=== PATIENT | female | born 1955 | race Caucasian/White ===

== ENCOUNTER → 2017-02-02 | Outpatient (CLI) | payer BC ==
--- NOTE | 2017-02-02 11:44 | US ---
EXAMINATION TYPE: US abdomen limited DATE OF EXAM: 02/02/2017 COMPARISON: NONE CLINICAL HISTORY: R10.11 Right upper quadrant pain. On and off RUQ pain for years, recent episode mor e painful, patient states she had 3 HIDA's scans, first 2 were abnormal but 3rd was done here and she said it was normal EXAM MEASUREMENTS: Liver Length: 19.0 cm Gallbladder Wall: 0.2 cm CBD: 0.6 cm Right Kidney: 10.9 x 4.5 x 5.1 cm large body habitus and bowel gas Pancreas: limited views due to bowel gas Liver: heterogeneous, difficult to penetrate and enlarged Gallbladder: wnl Evidence for sonographic Harris's sign: no CBD: wnl Right Kidney: wnl Visualized pancreas is slightly heterogeneous. Visualized liver is markedly heterogeneously hyperecho ic. Evaluation for focal masses is suboptimal due to the heterogeneity. Finding likely on basis of di ffuse fatty infiltration. IMPRESSION: Diffuse fatty infiltration of liver is felt present. No shadowing mobile gallstones or ul trasound evidence for acute cholecystitis.
== END | disposition home or self-care (01) ==
LOC: RADUSWWP 09:37
PROVIDERS: ATTEND Family Medicine
DX: K76.0 Fatty (change of) liver, not elsewhere classified (principal)
CPT/HCPCS: 76705

== ENCOUNTER → 2020-04-09 | Outpatient (CLI) | payer BC | END | disposition home or self-care (01) | LOC: RADXRYALE 16:01 | PROVIDERS: ATTEND Physician Assistant Medical | DX: Z53.9 Procedure and treatment not carried out, unspecified reason (principal) ==

== ENCOUNTER → 2020-11-06 | Outpatient (CLI) | payer MEDICARE ==
--- NOTE | 2020-11-06 10:36 | MM ---
Reason for exam: clinical finding. History: Patient is postmenopausal, has history of endometrial cancer at age 52, and is nulliparous. Family history of breast cancer in sister at age 28. Physical Findings: Nurse did not find any significant physical abnormalities on exam. MG 3D Diag Mammo W/Cad CALI Bilateral CC and MLO view(s) were taken. LM, spot compression MLO, and CC with magnification view(s) were taken of the left breast. No prior studies available for comparison. Oval focal asymmetry left upper inner quadrant. Additional low density areas of nodularity are also present on the left. These results were verbally communicated with the patient and result sheet given to the patient on 11/06/20. ASSESSMENT: Incomplete: need additional imaging evaluation, BI-RAD 0 RECOMMENDATION: Ultrasound of the left breast. (medial half)
--- NOTE | 2020-11-06 10:38 | USB ---
Reason for exam: additional evaluation requested from abnormal screening. History: Patient is postmenopausal, has history of endometrial cancer at age 52, and is nulliparous. Family history of breast cancer in sister at age 28. US Breast Limited LT Left limited breast ultrasound including focal area of concern, retroareolar and axilla demonstrates a 4 x 3 x 4mm lesion too small to characterize at 7 o'clock, 6 month follow up recommended and a 5 x 5 x 6mm discrete, hypoechoic lesion at 11 o'clock, similar, smaller 3mm area adjacent. Suspect some shadowing breast tissue. Scanned 6-12 o'clock. 6 month follow up recommended. These results were verbally communicated with the patient and result sheet given to the patient on 11/06/20. ASSESSMENT: Probably benign, BI-RAD 3 RECOMMENDATION: Follow-up diagnostic mammogram and ultrasound of the left breast in 6 months.
== END | disposition home or self-care (01) ==
LOC: RADMAMWWP 07:02
PROVIDERS: ATTEND Family Medicine
DX: N64.89 Other specified disorders of breast (principal); Z78.0 Asymptomatic menopausal state; Z80.3 Family history of malignant neoplasm of breast
CPT/HCPCS: 77066; 76642; G0279; 77062

== ENCOUNTER → 2020-11-26 | Outpatient (CLI) | payer MEDICARE ==
--- NOTE | 2020-11-26 12:24 | XR ---
EXAMINATION TYPE: XR foot complete LT DATE OF EXAM: 11/26/2020 COMPARISON: NONE HISTORY: Pain TECHNIQUE: Three views are submitted. FINDINGS: The osseous structures are intact. There is no acute fracture or dislocation. Diffuse osteopenia w ith arthropathy of the first MTP. Arthropathy of the DIP joints of the second through fourth digits. Calcaneal spur noted.. IMPRESSION: 1. No acute fracture or dislocation. If symptoms persist, follow-up exam in 7 to 10 days could be ob tained. 2. diffuse osteopenia and arthropathy. 3. Plantar calcaneal spur.
== END | disposition home or self-care (01) ==
LOC: RADXRYALE 09:23
PROVIDERS: ATTEND Physician Assistant Medical
DX: M77.32 Calcaneal spur, left foot (principal); M19.072 Primary osteoarthritis, left ankle and foot

== ENCOUNTER → 2021-05-12 | Outpatient (CLI) | payer MEDICARE ==
--- NOTE | 2021-05-13 10:05 | MM ---
Reason for exam: clinical finding. Last mammogram was performed 6 months ago. History: Patient is postmenopausal, has history of endometrial cancer at age 52, and is nulliparous. Family history of breast cancer in sister at age 28. Indicated problem(s): lump or thickening in the right breast. Physical Findings: Nurse did not find any significant physical abnormalities on exam. MG 3D Diag Mammo W/Cad CALI Bilateral CC, MLO, and LM view(s) were taken. Prior study comparison: November 06, 2020, bilateral MG 3d diag mammo w/cad CALI. There are scattered fibroglandular densities. Stable medial asymmetric density left breast for 6 months. 8mm circumscribed mass 9 o'clock right breast is new, suspected hematoma. These results were verbally communicated with the patient and result sheet given to the patient on 05/12/21. ASSESSMENT: Incomplete: need additional imaging evaluation, BI-RAD 0 RECOMMENDATION: Ultrasound of both breasts.
--- NOTE | 2021-05-13 10:08 | USB ---
Reason for exam: additional evaluation requested from abnormal screening. History: Patient is postmenopausal, has history of endometrial cancer at age 52, and is nulliparous. Family history of breast cancer in sister at age 28. US Breast Workup Limited CALI Right limited breast ultrasound including focal area of concern, retroareolar and axilla demonstrates a 1.1 x 0.8 x 0.9cm mixed, echogenic lesion with cystic component at 8 o'clock, 3 month follow up recommended. Left limited breast ultrasound including focal area of concern, retroareolar and axilla demonstrates a 0.5 x 0.4 x 0.4cm lesion too small to characterize at 7 o'clock versus 4 x 4 x 3mm previously and a 0.6 x 0.6 x 0.8cm mixed lesion at 10 o'clock, continue to follow up. These results were verbally communicated with the patient and result sheet given to the patient on 05/12/21. ASSESSMENT: Probably benign, BI-RAD 3 RECOMMENDATION: Follow-up diagnostic mammogram of the right breast in 3 months. Follow-up diagnostic mammogram and ultrasound of the left breast in 6 months.
== END | disposition home or self-care (01) ==
LOC: RADMAMWWP 13:38
PROVIDERS: ATTEND Family Medicine
DX: R92.8 Other abnormal and inconclusive findings on diagnostic imaging of breast (principal); N63.10 Unspecified lump in the right breast, unspecified quadrant; Z78.0 Asymptomatic menopausal state; Z80.3 Family history of malignant neoplasm of breast
CPT/HCPCS: 77066; 76642; G0279; 77062

== ENCOUNTER → 2022-01-11 | Outpatient (CLI) | payer MEDICARE ==
--- NOTE | 2022-01-11 07:35 | MM ---
Reason for Exam: Follow-up at short interval from prior study. Last screening mammogram was performed 8 month(s) ago. Patient History: Menarche at age 10. Patient has no children. Left ovary removed at age 52. Right ovary removed at age 52. Hysterectomy at age 52. Postmenopausal. Endometrial cancer, age 52. Sister had breast cancer, age 28. Risk Values: Jenise 5 year model risk: 3.6%. NCI Lifetime model risk: 12.1%. Prior Study Comparison: 11/06/2020 Bilateral Diagnostic Mammogram, [facility]. 05/12/2021 Bilateral Diagnostic Mammogram, [facility]. Tissue Density: The breast tissue is almost entirely fat. Findings: Analyzed By CAD. Areas of concern on prior in the left breast is stable, specifically the left anterior medial on CC and retroareolar on MLO view density. The area within the right breast seen laterally and superiorly is not definitively visualized on today's exam. Overall Assessment: Benign, BI-RAD 2 Management: Screening Mammogram of both breasts in 1 year. Please see ultrasound report for findings on sonography. A clinical breast exam by your physician is recommended on an annual basis and results should be correlated with mammographic findings. This exam should not preclude additional follow-up of suspicious palpable abnormalities. Results were given to the patient verbally at the time of exam. Electronically signed and approved by: Black Gutierrez DO
--- NOTE | 2022-01-11 08:31 | USB ---
Reason for Exam: Follow-up at short interval from prior study. Patient History: Menarche at age 10. Patient has no children. Left ovary removed at age 52. Right ovary removed at age 52. Hysterectomy at age 52. Postmenopausal. Endometrial cancer, age 52. Sister had breast cancer, age 28. Risk Values: Jenise 5 year model risk: 3.6%. NCI Lifetime model risk: 12.1%. Technique: Method: Targeted. Prior Study Comparison: 11/06/2020 Bilateral Diagnostic Mammogram, [facility]. 05/12/2021 Bilateral Diagnostic Mammogram, [facility]. 05/12/2021 Bilateral Diagnostic Ultrasound, [facility]. Findings: The axilla of the left breast and the retroareolar of the left breast were scanned. Area of concern at 7:00 to 10:00 was scanned with grayscale imaging along with axillary tail. * Similar Left breast 10:00 5 cm from nipple demonstrates slightly heterogenous lesion measuring similarly at 7 x 6 mm * Similar Left breast 7:00 3 cm from nipple demonstrates heterogenous hypoechoic area measuring similarly at 4 x 3 mm. Overall Assessment: Probably benign, BI-RAD 3 Management: Diagnostic Breast Ultrasound of the left breast in 6 months. A clinical breast exam by your physician is recommended on an annual basis and results should be correlated with mammographic findings. This exam should not preclude additional follow-up of suspicious palpable abnormalities. ??Results were given to the patient verbally at the time of exam. Electronically signed and approved by: Black Gutierrez, DO
== END | disposition home or self-care (01) ==
LOC: RADMAMWWP 06:57
PROVIDERS: ATTEND Family Medicine
DX: R92.8 Other abnormal and inconclusive findings on diagnostic imaging of breast (principal); Z78.0 Asymptomatic menopausal state; Z80.3 Family history of malignant neoplasm of breast
CPT/HCPCS: 77066; 76642; G0279; 77062

== ENCOUNTER → 2023-09-28 | Outpatient (CLI) | payer MEDICARE ==
--- NOTE | 2023-09-28 10:20 | USB ---
Reason for Exam: Additional evaluation requested from prior study. Patient History: Menarche at age 10. Patient has no children. Left ovary removed at age 52. Right ovary removed at age 52. Hysterectomy at age 52. Postmenopausal. Endometrial cancer, age 52. Sister had breast cancer, age 28. Risk Values: Jenise 5 year model risk: 3.7%. NCI Lifetime model risk: 11.1%. Technique: Method: Targeted. Doppler: Color. Patient Position: Supine. Prior Study Comparison: 11/06/2020 Bilateral Diagnostic Mammogram, [facility]. 05/12/2021 Bilateral Diagnostic Mammogram, [facility]. 01/11/2022 Bilateral MG 3D diag mammo w/cad CALI, [facility]. 01/11/2022 Left US breast limited , [facility]. Findings: The medial section of the breast of the left breast, the axilla of the left breast and the retroareolar of the left breast were scanned. At the 10:00 position 5 cm from nipple is a hypoechoic area with posterior shadowing. This 0.7 x 0.7 x 0.7 cm lesion is more distinct with greater loss of signal throughout the lesion. Biopsy is recommended. Within the left axilla there is a prominent 2.5 cm lymph node was thickened cortex measuring 0.5 cm. Overall Assessment: Suspicious, BI-RAD 4 Management: Surgical Consultation of the left breast. Ultrasound Core Biopsy of the left breast. A clinical breast exam by your physician is recommended on an annual basis and results should be correlated with mammographic findings. This exam should not preclude additional follow-up of suspicious palpable abnormalities. Results were given to the patient verbally at the time of exam. Electronically signed and approved by: Ovi Roth D.O. Radiologis
--- NOTE | 2023-09-29 07:24 | MM ---
Reason for Exam: Follow-up at short interval from prior study. Last mammogram was performed 1 year(s) and 9 month(s) ago. Patient History: Menarche at age 10. Patient has no children. Left ovary removed at age 52. Right ovary removed at age 52. Hysterectomy at age 52. Postmenopausal. Endometrial cancer, age 52. Sister had breast cancer, age 28. Risk Values: Jenise 5 year model risk: 3.7%. NCI Lifetime model risk: 11.1%. Prior Study Comparison: 11/06/2020 Bilateral Diagnostic Mammogram, [facility]. 11/06/2020 Left Diagnostic Ultrasound, [facility]. 05/12/2021 Bilateral Diagnostic Mammogram, [facility]. 05/12/2021 Bilateral Diagnostic Ultrasound, [facility]. 01/11/2022 Bilateral MG 3D diag mammo w/cad CALI, [facility]. 01/11/2022 Left US breast limited LT, [facility]. Tissue Density: There are scattered areas of fibroglandular density. Findings: Analyzed By CAD. The pattern is symmetrical. There is a focal asymmetry within the anterior lower aspect left breast. Additional evaluation with ultrasound is recommended. Right breast:No suspicious groups of microcalcifications, spiculated or lobular masses, architectural distortion or other secondary signs of malignancy are mammographically apparent. Overall Assessment: Incomplete: need additional imaging evaluation, BI-RAD 0 Management: Diagnostic Breast Ultrasound of the left breast. A negative mammogram report should not preclude additional follow up of suspicious palpable abnormalities. Patient should continue monthly self breast exam. A clinical breast exam by your physician is recommended on an annual basis and results should be correlated with mammographic findings. Note on Jenise scores and lifetime risk: 1. A Jenise score greater than 3% is considered moderate risk. If this is the case, consider specialist referral to assess eligibility for a risk reducing agent. 2. If overall lifetime risk for the development of breast cancer is 20% or higher, the patient may qualify for future screening with alternating mammogram and breast MRI. Electronically signed and approved by: Ovi Roth D.O. Radiologis
== END | disposition home or self-care (01) ==
LOC: RADMAMWWP 08:45
PROVIDERS: ATTEND Family Medicine
DX: R92.8 Other abnormal and inconclusive findings on diagnostic imaging of breast (principal); N63.10 Unspecified lump in the right breast, unspecified quadrant; R92.323 Mammographic fibroglandular density, bilateral breasts; Z78.0 Asymptomatic menopausal state; Z80.3 Family history of malignant neoplasm of breast
CPT/HCPCS: 77066; 76642; G0279; 77062

== ENCOUNTER → 2023-10-12 | Day surgery (SDC) | payer MEDICARE ==
--- NOTE | 2023-11-16 09:23 | MM ---
Reason for Exam: Post Procedure Mammogram. Last screening mammogram was performed less than 1 month ago. Patient History: Menarche at age 10. Patient has no children. Left ovary removed at age 52. Right ovary removed at age 52. Hysterectomy at age 52. Postmenopausal. Endometrial cancer, age 52. Sister had breast cancer, age 28. Risk Values: Jenise 5 year model risk: 3.7%. NCI Lifetime model risk: 11.1%. Prior Study Comparison: 05/12/2021 Bilateral Diagnostic Mammogram, [facility]. 01/11/2022 Bilateral MG 3D diag mammo w/cad CALI, [facility]. 09/28/2023 Bilateral MG 3D diag mammo w/cad CALI, [facility]. 09/28/2023 Left US breast LT, [facility]. Tissue Density: Left: There are scattered areas of fibroglandular density. Pathology Description: Location: 10 o'clock. Marker Left Behind. Needle Type: [employer] Cores: 4 Gauge: 12 The procedure of ultrasound guided core biopsy was explained to the patient. Benefits, alternatives, and risks were discussed. An informed consent was then obtained. The patient was placed in supine positioning for imaging and for the procedure. The overlying skin was prepped and draped in usual sterile fashion. Lidocaine buffered with bicarbonate was used as anesthetic into the skin and subcutaneous tissue up to area of concern in the left 10:00 breast. Under ultrasound guidance, a 12-gauge vacuum assisted biopsy gun device was used to obtain 4 core samples. Following this, a biopsy clip was left in lesion. The patient tolerated the procedure well without any immediate complication. The patient was kept in the radiology department for short stay after the procedure and then discharged home in stable condition. Postprocedure mammogram: The patient was transferred to mammography for physician ordered post procedure mammogram for clip placement verification. Impression: Successful, uncomplicated ultrasound guided core biopsy of area of concern in the left breast, full pathology results to follow. Pathology Results: Result: Benign, Fibrocystic change. Pathology and radiology were reviewed. Findings are concordant. LEFT BREAST, TEN O'CLOCK, ULTRASOUND GUIDED NEEDLE CORE BIOPSY: Benign breast with fibrocystic changes including fibroadenomatoid hyperplasia. Overall Assessment: Benign Assessment: MG diagnostic mammo LT wo CAD. - Left: Benign, BI-RAD 2. Management: Diagnostic Breast Ultrasound of the left breast in 6 months. Electronically signed and approved by: Rj Regalado M.D. Radiologis
== END ==
LOC: RADUSWWP 07:44
PROVIDERS: ATTEND Family Medicine
DX: N62 Hypertrophy of breast (principal); D24.2 Benign neoplasm of left breast; N60.12 Diffuse cystic mastopathy of left breast; R92.8 Other abnormal and inconclusive findings on diagnostic imaging of breast; Z78.0 Asymptomatic menopausal state; Z80.3 Family history of malignant neoplasm of breast; Z90.721 Acquired absence of ovaries, unilateral
CPT/HCPCS: 88305; 77065; 19083; A4648

== ENCOUNTER → 2024-03-30 | Outpatient (CLI) | payer MEDICARE ==
--- NOTE | 2024-03-30 15:04 | US ---
EXAMINATION TYPE: US st tissue head/neck DATE OF EXAM: 03/30/2024 COMPARISON: NONE CLINICAL INDICATION: Female, 69 years old with history of L04.0 LYMPHADENITIS FACE; round boner notes : Patient states she feels a palp and discomfort anterior mid neck from chin to lower. TECHNIQUE: Sonographic images taken at the area of concern FINDINGS: Chief Lock Operator notes: Multiple images taken of patients area of concern. Normal appearing lymph node seen with cortical th ickness =1.0 mm. Provided images show some ovoid asymmetry to the soft tissues overlying the left strap musculature at the area of concern. This area measures 1.2 x 1.7 x 0.6 cm. The etiology is unclear. Unclear if the finding indicated by the round boner above is a lymph node. The left submandibular gland has a normal appearance. IMPRESSION: Some asymmetry to the soft tissues overlying the left strap musculature at the area of concern. This area measures 1.7 x 1.2 x 0.6 cm. Etiology unclear. Possibly some nonspecific swelling. Recommend cli nical follow-up and follow-up ultrasound in 2-3 months to reassess. Rescan sooner if there is progres sive enlargement or consider contrast-enhanced CT soft tissue neck. [facility], Workstation: [place], 03/30/2024 3:02 PM
== END | disposition home or self-care (01) ==
LOC: RADUSWWP 13:25
PROVIDERS: ATTEND Family Medicine
DX: L04.0 Acute lymphadenitis of face, head and neck (principal)
CPT/HCPCS: 76536

== ENCOUNTER → 2024-06-05 | Outpatient (CLI) | payer MEDICARE ==
--- NOTE | 2024-06-05 08:02 | USB ---
Reason for Exam: Follow-up at short interval from prior study. Patient History: Menarche at age 10. Patient has no children. Left ovary removed at age 52. Right ovary removed at age 52. Hysterectomy at age 52. Postmenopausal. Endometrial cancer, age 52. 10/12/2023, Benign US biopsy breast VAD LT on the left side. Sister had breast cancer, age 28. Risk Values: Jenise 5 year model risk: 4.4%. NCI Lifetime model risk: 12.4%. Technique: Method: Targeted. Prior Study Comparison: 01/11/2022 Bilateral MG 3D diag mammo w/cad CALI, [facility]. 09/28/2023 Bilateral MG 3D diag mammo w/cad CALI, [facility]. 10/12/2023 Left MG diagnostic mammo LT wo CAD., [facility]. Findings: The upper inner quadrant of the left breast, the axilla of the left breast and the retroareolar of the left breast were scanned. Targeted ultrasound shows biopsy clip adjacent to 8 x 7 x 6 mm poorly defined hypoechoic area with posterior shadowing which is unchanged in size and appearance from prior ultrasound. No new solid or cystic masses or fluid collections are seen. Sonographic evaluation included the subareolar and axillary regions. Overall Assessment: Benign, BI-RAD 2 Management: Screening Mammogram of both breasts in 4 months. Back on bilateral annual schedule. A clinical breast exam by your physician is recommended on an annual basis and results should be correlated with mammographic findings. This exam should not preclude additional follow-up of suspicious palpable abnormalities. Results were given to the patient verbally at the time of exam. [facility], , 06/05/2024 7:59 AM. Electronically signed and approved by: Zhnag Gonzalez M.D.
--- NOTE | 2024-06-05 08:57 | US ---
EXAMINATION TYPE: US arterial LE multi level DATE OF EXAM: 06/05/2024 8:46 AM COMPARISONS: None. CLINICAL INDICATION: Female, 69 years old with history of [id number] SYMPTOMS AND SIGNS CIRCULATORY SYSTEM ; pt states her doctor noticed her feet were purple TECHNIQUE: Systolic pressures were taken of the upper and lower extremity arteries with ankle-brachia l indices and toe brachial indices calculated bilaterally. History of: Smoker: no Hypertension: yes Diabetic: yes Hyperlipidemia: yes TIA/CVA: no Previous Vascular Surgery: no CAD: no MN: no Vascular Ulcers: no Claudication: no Gangrene: no FINDINGS: Doppler Waveforms: Right: Biphasic Left: Biphasic Brachial Artery systolic pressure: Right: 196 Left: 176 Posterior Tibial artery systolic pressure: Right: 147 Left: 132 Dorsalis Pedis artery systolic pressure: Right: 132 Left: 142 Toe artery systolic pressure: Right: 102 Left: 101 Ankle-Brachial Indices: Right: 0.75 Left: 0.72 Toe Brachial Indices: Right: 0.52 Left: 0.52 (Normal > 0.6; Mild 0.35 - 0.59, Moderate 0.12 - 0.34, Severe <0.12) Pt could not tolerate calf pressure on right side. Pt states her blood pressure is normally high, and was asymptomatic. IMPRESSION: JINA: Right: Some Arterial Disease 0.7 - 0.8, , Recommendation: Treat Risk Factors Left: Some Arterial Disease 0.7 - 0.8, , Recommendation: Treat Risk Factors [facility], , 06/05/2024 8:55 AM
== END | disposition home or self-care (01) ==
LOC: RADUSWWP 07:18
PROVIDERS: ATTEND Family Medicine
DX: R09.89 Other specified symptoms and signs involving the circulatory and respiratory systems (principal); I99.9 Unspecified disorder of circulatory system; N63.20 Unspecified lump in the left breast, unspecified quadrant; R92.8 Other abnormal and inconclusive findings on diagnostic imaging of breast; Z78.0 Asymptomatic menopausal state; Z80.3 Family history of malignant neoplasm of breast
CPT/HCPCS: 93923